=== PATIENT | female | born 1970 | race Caucasian/White ===

== ENCOUNTER 2019-12-22 06:51 | Outpatient (NON) | payer OTHER, SELFPAY ==
[2019-12-22 20:49] LABS: SARS-CoV-2 RNA PCR Negative
== END 2019-12-22 06:52 ==
PROVIDERS: PCP Family Medicine; Visit Provider Nurse Practitioner Family
DX: R68.89 Other general symptoms and signs (principal); Z20.828 Contact with and (suspected) exposure to other viral communicable diseases
CPT/HCPCS: 87635; C9803; U0003

== ENCOUNTER 2020-01-25 12:56 | Emergency (ER) | payer OTHER, SELFPAY ==
[2020-01-25] VITALS (11 sets, daily range): BP systolic 142–157; BP diastolic 81–91; PULSE 51–78; RESP 12–21; TEMP 36.6; O2SAT 91–100
--- NOTE | ~2020-01-25 | XR_ITS ---
EXAMINATION: XR chest 2V EXAM DATE: 01/25/2020 14:21 INDICATION: Weakness. Headache. TECHNIQUE: Frontal and lateral projections of the chest obtained and reviewed. There is no prior thuy dy for comparison. FINDINGS: The lungs are clear. There are no pleural effusions. The cardiomediastinal silhouette is within normal limits. There is no pneumothorax suspected. The bones and soft tissues are unremarkab le. IMPRESSION: Normal chest x-ray exam. Reviewed, dictated and finalized at location B. IMPRESSION: Normal chest x-ray exam.
--- NOTE | ~2020-01-25 | CT_ITS ---
EXAMINATION: CT brain wo con EXAM DATE: 01/25/2020 14:18 INDICATION: Severe headache. TECHNIQUE: Spiral CT of the head was performed without contrast. Axial, coronal and sagittal images were reviewed. The dose-length product (DLP) for this examination was 605.33 mGy-cm. The exposure w as tailored according to patient size, and iterative reconstruction (ASIR) was used as additional dos e reduction technique. There is no prior study for comparison. FINDINGS: There is no acute intraparenchymal hemorrhage. No evidence of intraparenchymal brain mass lesion. No evidence of acute infarction. There is no mass effect or midline shift. The ventricles are normal in size. There are no extra-axial collections. There are no acute calvarial fractures. T he orbits are unremarkable. Soft tissue is unremarkable. The visualized sinuses and mastoid air fransisco ls are well aerated. IMPRESSION: 1. Normal head CT examination. Reviewed, dictated and finalized at location B.
--- NOTE | 2020-01-25 13:02 | ED.GENADULT ---
HPI - General Adult General Chief complaint: Unspecified Stated complaint: low pulse , h/a, fatigue Time Seen by Provider: 01/25/20 13:02 Source: patient Mode of arrival: ambulatory Limitations: no limitations History of Present Illness HPI narrative: Patient is a 49-year-old female with a history of migraine headaches who presents for evaluation of headache. Patient reports feeling fatigued and weak throughout the day. She reports headache over her temples which began this morning and has had gradual onset to a worsening headache. She states it feels somewhat different than her typical migraines which typically occur only on one side of the head. She has no thunderclap sensation to the headache. No associated vision changes, light sensitivity or vomiting. She does report some mild nausea earlier this morning that has since resolved. Patient denies any numbness or tingling in the upper or lower extremities. No difficulty with ambulation. No chest pain, cough, shortness of breath or abdominal pain. No urinary symptoms. Patient states her Fitbit alarmed to her having a low heart rate today, rate was 50s to 60s, states she typically runs in the 60s. No lightheadedness, no dizziness, no syncope. Related Data Home Medications Medication Instructions Recorded Confirmed No Home Medications 12/17/19 12/17/19 Allergies Allergy/AdvReac Type Severity Reaction Status Date / Time No Known Allergies Allergy Verified 01/25/20 13:08 Review of Systems Review of Systems: Narrative: CONSTITUTIONAL: Denies fever, chills, or sweats. EYES: Denies visual changes ENT: Denies rhinorrhea, congestion CARDIOVASCULAR: Denies chest pain, palpitations, or edema. RESPIRATORY: Denies cough or dyspnea. GASTROINTESTINAL: Denies abdominal pain, reports earlier nausea, now resolved, denies vomiting GENITOURINARY: Denies dysuria or hematuria. SKIN: Denies rash or itching. MUSCULOSKELETAL: Denies back pain, joint pain, or myalgia. NEUROLOGIC: Reports headache, reports feeling slightly weak PMFSH Past Medical History Medical History Carpal tunnel syndrome Migraine Plantar fasciitis Family History Family History (Updated 12/15/18 @ 08:15 by DOCTOR UNKNOWN) Grandparent Acute myocardial infarction, Onset Age: 55 Cerebrovascular accident, Onset Age: 71 Family history of Alzheimer's disease, Onset Age: 82 Mother Family history unknown, Onset Age: 35 Patient's mother is , Onset Age: 35 Other Family history of arthritis Family history of osteoporosis Social History Social History Smoking status: Never smoker Second hand tobacco smoke exposure: No Alcohol intake: current Gender identity (if verbalized by the patient): Female Exam Narrative: Exam Narrative: GENERAL: Awake, alert, conversant HEAD: Normocephalic, atraumatic. EYES: PERRLA and EOMI. ENT: Nares clear, no rhinorrhea or epistaxis. Mucous membranes moist. NECK: Supple. CHEST: No respiratory distress, breathing even and non labored HEART: Regular rate, sinus rhythm ABDOMEN:Non distended, non tender EXTREMITIES: Normal range of motion. No edema. SKIN: Warm, dry, no rash. NEURO:No focal deficits. Alert and oriented x3. Finger to nose intact bilaterally. EOMs intact without nystagmus. No facial droop/asymmetry noted bilaterally. Grimace intact. Intact sensation in face. Hearing intact bilaterally. Shoulder shrug intact. Strength 5/5 bilateral upper extremities. Strength 5/5 bilateral lower extremities. Reflexes 2+ patellar. Heel to fontenot intact bilaterally. Ambulatory with a narrow base, steady gait. No ataxia. Course Vital Signs Vital signs: Vital Signs Pulse Oximetry 100 01/25/20 13:01 Temperature 36.6 C 01/25/20 13:04 Pulse Rate 51 L 01/25/20 14:00 Respiratory Rate 14 01/25/20 14:00 Blood Pressure
--- NOTE | 2020-01-25 13:03 | ECG_ITS ---
Measurements Intervals [place] Rate: 55 P: 32 MS: 176 QRS: 13 QRSD: 90 T: 33 QT: 416 QTc: 399 Interpretive Statements SINUS BRADYCARDIA BORDERLINE ECG Electronically Signed On 01-25-2020 13:44:17 CDT by Steven Ceron D.O.
[2020-01-25] MEDS: METOCLOPRAMIDE HCL INJ 10 MG/2 ML VIAL IV PUSH (13:44)
[2020-01-25] MEDS: diphenhydrAMINE HCl INJ 50 MG/ML VIAL 25 MG IV PUSH (13:44)
[2020-01-25] MEDS: SODIUM CHLORIDE 0.9% IV 1,000 ML 999 ML IV CONT (13:45)
[2020-01-25] MEDS: MAGNESIUM SULF 2 GM/WATER 50ML 2 GM/50 ML BAG IVPB (13:45)
[2020-01-25 13:47] LABS: Basophils Percent Auto 0.6 % (0.2-1.2); Eosinophils Absolute Auto 0.1 K/mm3 (0-0.3); Eosinophils Percent Auto 1.7 % (0-4.4); Hematocrit 42.2 % (37.0-47.0); Hemoglobin 14.6 g/dL (12.0-15.0); Immature Granulocyte Absolute 0.01 K/mm3 (0.00-0.031); Immature Granulocyte Percent A 0.2 % (0-0.5); Lymphocytes Absolute Auto 1.57 K/mm3 (0.9-3.2); Lymphocytes Percent Auto 28.9 % (18.3-44.2); Mean Corpuscular HGB Conc 34.6 g/dl (32-36); Mean Corpuscular Hemoglobin 31.5 pg (26-34); Mean Corpuscular Volume 90.9 fl (80-100); Mean Platelet Volume 9.2 fl (7.4-10.4); Monocytes Absolute Auto 0.4 K/mm3 (0.1-0.6); Monocytes Percent Auto 6.8 % (2.6-8.5); Neutrophils Absolute Auto 3.4 K/mm3 (1.3-6.7); Neutrophils Percent Auto 61.8 % (45.5-73.1); Platelet Count Result 295 k/mm3 (150-375); Red Blood Count 4.64 M/mm3 (4.2-5.4); Red Cell Distribution Width 11.8 % (11.5-14.5); White Blood Count 5.4 K/mm3 (4.5-10.0)
[2020-01-25 13:58] LABS: Alanine Aminotransferase 20 U/L (4-35); Albumin Level 4.6 g/dL (3.5-5.1); Alkaline Phosphatase 68 U/L (38-126); Anion Gap 10 mmol/L (8-16); Aspartate Amino Transferase 21 U/L (14-36); Bilirubin,Total 0.5 mg/dL (0.2-1.3); Blood Urea Nitrogen 19 mg/dL (7-17); Calcium 9.4 mg/dL (8.4-10.2); Carbon Dioxide 26 mmol/L (22-30); Chloride 105 mmol/L (98-107); Estimated CRCL calculation 86 ml/min; Estimated Glomerular Filt Rate > 60; Glucose 108 mg/dL (65-105); Sodium 141 mmol/L (137-145)
[2020-01-25 14:12] LABS: Add Urine Microscopic? YES; Appearance Urine Clear (Clear); Bacteria Urine Trace /hpf; Bilirubin Urine Negative (Negative); Blood Urine 3+ (Negative); Color Urine Colorless (Yellow); Glucose Urine UA Negative (Negative); Ketones Urine Negative (Negative); Leukocyte Esterase Ur Negative LEU/UL (Negative); Nitrate Urine Negative (Negative); Protein Urine Negative (Negative); RBC Urine 0-2 /hpf (0-2); Squamous Epithelial Cell Urine Occasional /hpf (Few); Urobilinogen Urine Negative mg/dL (<2.0); WBC Urine 0-3 /hpf
[2020-01-25 14:16] LABS: Specific Grav Ur 1.004 (1.001-1.035)
--- NOTE | 2020-01-25 14:51 | PC.NURSE ---
rn report from yolanda
== END 2020-01-25 18:32 | disposition home or self-care (01) ==
PROVIDERS: Emergency Provider Emergency Medicine; PCP Family Medicine
DX: G43.909 Migraine, unspecified, not intractable, without status migrainosus (principal); R00.1 Bradycardia, unspecified
CPT/HCPCS: 36415; 70450; 71046; 80053; 81001; 84443; 85025; 93005; 96365; 96368; 96375; 99284; J0131; J1100; J1200; J2765; J3475; J7030

== ENCOUNTER → 2021-03-01 15:45 | Outpatient (CLI) | payer BC, SELFPAY ==
--- NOTE | ~2021-03-01 | MM_ITS ---
EXAMINATION: MM screening [facility] BI w jose HISTORY: Screening mammogram TECHNIQUE: Craniocaudal and mediolateral oblique 3-D tomosynthesis images were obtained and synthetic 2-D images were generated. CAD analysis was submitted and interpreted. COMPARISON: No prior mammogram is available for comparison at this institution. BREAST PARENCHYMAL COMPOSITION: The breasts are heterogeneously dense, which may obscure small masses . FINDINGS: Question of 8 mm spiculated mass at mid upper left breast (MLO Tomosynthesis image 36/74). Diagnostic left mammogram and left breast ultrasound examination are recommended. Otherwise there is no evidence of suspicious mass, calcification, or architectural distortion to sugg est malignancy in either breast. IMPRESSION: 1. Question of 8 mm thick mass at mid upper left breast 2. Diagnostic left mammogram and left breast ultrasound examination are recommended BI-RADS Category 0: Incomplete: Needs additional imaging evaluation. Reviewed, dictated and finalized at location A. 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 Question of 8 mm thick mass at mid upper left breast 2. Diagnostic left mammogram and left breast ultrasound examination are recomme nded BI-RADS Category 0: Incomplete: Needs additional imaging evaluation.
== END ==
PROVIDERS: PCP Family Medicine; Visit Provider Family Medicine
DX: Z12.31 Encounter for screening mammogram for malignant neoplasm of breast (principal); R92.8 Other abnormal and inconclusive findings on diagnostic imaging of breast
CPT/HCPCS: 77063; 77067

== ENCOUNTER → 2021-04-02 07:56 | Outpatient (CLI) | payer BC, SELFPAY ==
--- NOTE | ~2021-04-02 | MMUS_ITS ---
EXAMINATION: MM diagnostic [facility] LT w jose, US breast LT limited HISTORY: Possible left breast mass on screening mammogram TECHNIQUE: Additional 3-D tomosynthesis images of the left breast were performed and synthetic 2-D im ages were generated. CAD analysis was submitted and interpreted. High resolution limited left breast ultrasound was performed. COMPARISON: 03/01/2021, 11/27/2014 FINDINGS: MAMMOGRAPHIC FINDINGS: There is a possible 8 mm oval, obscured, equal density mass in the middle third of the breast at the 12:00 location 7 cm from the nipple. No suspicious calcification or architectural distortion are iden tified. ULTRASOUND: There is a 7 mm x 3 mm oval, circumscribed, parallel, complex cystic and solid mass with no posterior features or internal vascularity at the 1:00 location 3 cm from the nipple. IMPRESSION: 1. Probably benign left breast mass. 2. Recommend 6 month follow-up left diagnostic mammogram and ultrasound. BI-RADS category 3, probably benign findings. Reviewed, dictated and finalized at location A. 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 Probably benign left breast mass. 2. Recommend 6 month follow-up left diagnostic mammogram and ultrasound. BI-RADS category 3, probably benign findings.
== END ==
PROVIDERS: PCP Family Medicine; Visit Provider Family Medicine
DX: N63.20 Unspecified lump in the left breast, unspecified quadrant (principal)
CPT/HCPCS: 76642; 77061; 77065; G0279

== ENCOUNTER → 2022-05-23 15:29 | Outpatient (CLI) | payer OTHER, SELFPAY ==
--- NOTE | ~2022-05-23 | XR_ITS ---
EXAMINATION: XR knee RT 3V DATE: 05/23/2022 15:42 INDICATION: Right knee injury and pain. TECHNIQUE: 3 views of right knee were obtained. COMPARISON: None. FINDINGS: Bone alignment is normal. No fracture. There is a 3.2 cm sclerotic lesion in posterior medi al aspect of femoral metaphysis. There is mild osteoarthritis of medial and lateral compartments. No knee joint effusion. IMPRESSION: 1. Mild right knee osteoarthritis. 2. 3.2 cm sclerotic lesion in posteromedial aspect of femoral metaphysis. In the absence of known mal ignancy, this finding is also likely a healing/healed nonossifying fibroma. Reviewed, dictated and finalized at location A. SALTER IMPRESSION: 1. Mild right knee osteoarthritis. 2. 3.2 cm sclerotic lesion in posteromedial aspect of femoral metaphysis. In th e absence of known malignancy, this finding is also likely a healing/healed non ossifying fibroma.
== END ==
PROVIDERS: PCP Family Medicine; Visit Provider Nurse Practitioner
DX: M17.11 Unilateral primary osteoarthritis, right knee (principal)
CPT/HCPCS: 73562

== ENCOUNTER → 2022-06-08 10:46 | Outpatient (CLI) | payer OTHER, SELFPAY ==
--- NOTE | ~2022-06-08 | MR_ITS ---
EXAMINATION: MR knee RT wo con DATE: 06/08/2022 11:25 INDICATION: Lateral right knee pain, status post fall 3 weeks ago. TECHNIQUE: Magnetic resonance imaging (MRI) of the right knee was performed without intravenous contr ast. Sequences included axial PD-weighted FS FSE, coronal PD-weighted FSE and PD-weighted FS FSE, sag ittal PD-weighted FSE, and sagittal T2-weighted FS FSE. COMPARISON: X-ray right knee 05/23/2022. FINDINGS: Medial compartment: Meniscus intact. Mild diffuse cartilage thinning. Lateral compartment: Meniscus intact. Mild diffuse cartilage thinning Patellofemoral compartment: Patellar cartilage intact. Retinacula intact. Ligaments and tendons: ACL, PCL, MCL, and LCL are intact. Remaining flexor and extensor tendons are intact. Thickening and a bnormal signal in the popliteus tendon, at its insertion. Fluid: No significant joint effusion. Osseous/other: Eccentric mostly sclerotic lesion in the posterior medial femoral cortex, without endosteal scallopin g, soft tissue mass, or periosteal change, likely representing a healing/healed nonossifying fibroma. No suspicious focal or diffuse marrow signal. IMPRESSION: 1. No internal derangement. 2. Popliteus tendon strain. 3. Mild tricompartmental osteoarthritis. Reviewed, dictated and finalized at location K. ESSOR OF RELIGIOUS STUDIES
== END ==
PROVIDERS: PCP Family Medicine; Visit Provider Nurse Practitioner
DX: M25.561 Pain in right knee (principal); S86.811A Strain of other muscle(s) and tendon(s) at lower leg level, right leg, initial encounter; M17.11 Unilateral primary osteoarthritis, right knee
CPT/HCPCS: 73721

== ENCOUNTER → 2022-11-16 08:44 | Outpatient (CLI) | payer OTHER, SELFPAY ==
--- NOTE | ~2022-11-16 | MM_ITS ---
EXAMINATION: MM screening [facility] BI w jose HISTORY: Screening mammogram TECHNIQUE: Craniocaudal and mediolateral oblique 3-D tomosynthesis images were obtained and synthetic 2-D images were generated. CAD analysis was submitted and interpreted. COMPARISON: 04/02/2021 diagnostic left mammogram and limited left breast ultrasound examination 03/01/2021 bilateral screening mammogram BREAST PARENCHYMAL COMPOSITION: The breasts are heterogeneously dense, which may obscure small masses .. FINDINGS: Stable circumscribed approximately 3.5 x 5.3 mm opacity in the posterior upper outer right breast, most consistent with benign right axillary tail lymph node. There is no evidence of suspiciou s mass, calcification, or architectural distortion to suggest malignancy in either breast. There has been no suspicious interval change. IMPRESSION: 1. Benign finding. No mammographic evidence of malignancy. 2. Recommend routine screening mammography in one year. BI-RADS Category 2: Benign finding(s). Reviewed, dictated and finalized at location A.
== END ==
PROVIDERS: PCP Family Medicine; Visit Provider Family Medicine
DX: Z12.31 Encounter for screening mammogram for malignant neoplasm of breast (principal)
CPT/HCPCS: 77063; 77067

== ENCOUNTER 2024-04-08 09:34 | Outpatient (CLI) | payer OTHER, SELFPAY ==
--- NOTE | ~2024-04-08 | XR_ITS ---
EXAMINATION: XR foot LT min 3V DATE: 04/08/2024 09:43 INDICATION: Left foot pain. TECHNIQUE: 4 views of left foot were obtained. COMPARISON: None. FINDINGS: Alignment is normal. No fracture. Joint spaces are normal. There are enthesophytes at the p osterior and plantar aspects of calcaneal tuberosity. IMPRESSION: 1. No fracture. Reviewed, dictated and finalized at location A. TECHNICAL ARCHITECT IMPRESSION: 1. No fracture.
== END 2024-04-08 09:35 | disposition home or self-care (01) ==
LOC: GOSHIMG 09:35
PROVIDERS: PCP Family Medicine; Visit Provider Family Medicine
DX: M79.672 Pain in left foot (principal)
CPT/HCPCS: 73630

== ENCOUNTER 2024-10-11 14:18 | Outpatient (CLI) | payer OTHER, SELFPAY ==
--- NOTE | ~2024-10-11 | MM_ITS ---
EXAMINATION: MM screening [facility] BI w jose HISTORY: Screening mammogram TECHNIQUE: Craniocaudal and mediolateral oblique 3-D tomosynthesis images were obtained and synthetic 2-D images were generated. CAD analysis was submitted and interpreted. COMPARISON: 11/16/2022, 03/01/2021 BREAST PARENCHYMAL COMPOSITION:Not Dense. There are scattered areas of fibroglandular density. FINDINGS: No suspicious mass, calcification, or architectural distortion are identified in either nicho ast to suggest malignancy. There has been no suspicious interval change. IMPRESSION: No mammographic evidence of malignancy. Recommend routine screening mammography in one year. BI-RADS Category 1: Negative Reviewed, dictated and finalized at location .
== END 2024-10-11 14:19 | disposition home or self-care (01) ==
LOC: CHSIMG 14:19
PROVIDERS: PCP Family Medicine; Visit Provider Family Medicine
DX: Z12.31 Encounter for screening mammogram for malignant neoplasm of breast (principal)
CPT/HCPCS: 77063; 77067

== ENCOUNTER 2024-12-21 11:31 | Outpatient (CLI) | payer OTHER, SELFPAY ==
--- NOTE | ~2024-12-21 | XR_ITS ---
XR lumbar spine min 4V, XR sacrum coccyx min 2V 12/21/2024 12:18 Indication: Low back pain for 2 months Procedure: 5 views lumbar spine 3 views sacrum/coccyx Comparison: No prior studies for comparison. Findings: There is sacralization of L5. There is dextroscoliosis centered at L2- 3. There is facet degenerative change at L4-5 and to a lesser degree L3-4. Sacral foramen are symmetric. No acute fracture, subluxation or dislocation. There is an IUD in the pelvis. No significant degenerative changes of the sacroiliac joints. Impression: 1: Mild lumbar spondylosis with sacralization of L5. 2: Dextroscoliosis. Reviewed, dictated and finalized at location O. Impression: 1: Mild lumbar spondylosis with sacralization of L5. 2: Dextroscoliosis. Impression: 1: Mild lumbar spondylosis with sacralization of L5. 2: Dextroscoliosis.
== END 2024-12-21 11:32 | disposition home or self-care (01) ==
LOC: GOSHIMG 11:32
PROVIDERS: PCP Family Medicine; Visit Provider Family Medicine
DX: M47.816 Spondylosis without myelopathy or radiculopathy, lumbar region (principal); M43.27 Fusion of spine, lumbosacral region; M41.86 Other forms of scoliosis, lumbar region
CPT/HCPCS: 72110; 72220

== ENCOUNTER 2025-03-30 15:21 | Outpatient (CLI) | payer OTHER, SELFPAY ==
--- NOTE | ~2025-03-30 | CT_ITS ---
EXAMINATION: CT lumbar spine wo con COMPARISON: None HISTORY: Low back pain, unspecified TECHNIQUE: Axial images were obtained through the spine without IV contrast. Coronal, sagittal reconstruction images were obtained from the axial views. CT scan performed using dose optimization techniques including the following automated exposure control; adjustment of mA and/or kV; use of iterative reconstruction technique. Automatic exposure control was used to reduce radiation dose. Permanent radiation dose record is archived to PACS. FINDINGS: Mild levoconvex scoliosis. There is no fracture or subluxation. Moderate loss of disc at L4-5 and L5-S1 with moderate canal and foraminal stenosis. Soft tissues unremarkable. Impression: No acute abnormality. Reviewed, dictated and finalized at location P. UM WORKER Impression: No acute abnormality.
== END 2025-03-30 15:22 | disposition home or self-care (01) ==
LOC: MICIMG 15:22
PROVIDERS: PCP Family Medicine; Visit Provider Family Medicine
DX: M41.56 Other secondary scoliosis, lumbar region (principal); R29.890 Loss of height; M48.061 Spinal stenosis, lumbar region without neurogenic claudication; M48.07 Spinal stenosis, lumbosacral region
CPT/HCPCS: 72131